=== PATIENT | male | born 1970 | race Caucasian/White ===

== ENCOUNTER 2019-01-27 11:01 | Emergency (ER) | payer MEDICAID ==
[~2019-01-27] VITALS: Ht 167.6 cm; Wt 77.3 kg
[2019-01-27] MEDS ORDERED: CEPH500 PO (11:06)
[2019-01-27] MEDS ORDERED: LISI-662 PO (11:06)
[2019-01-27] MEDS ORDERED: LORazepam 2 MG/ML VIAL IVP ONE (11:45)
[2019-01-27] MEDS ORDERED: SODIUM CHLORIDE 0.9% 1,000 ML IV ONE (11:45)
[2019-01-27 12:47] VITALS: BP 136/78
== END 2019-01-27 12:50 | disposition home or self-care (01) ==
LOC: EMS 11:03
DX: F10.229 Alcohol dependence with intoxication, unspecified (principal); E86.0 Dehydration; I10 Essential (primary) hypertension; F17.210 Nicotine dependence, cigarettes, uncomplicated; Z79.899 Other long term (current) drug therapy; Z95.1 Presence of aortocoronary bypass graft; Z91.013 Allergy to seafood; Y90.6 Blood alcohol level of 120-199 mg/100 ml
CPT/HCPCS: 36415; 96361; 96374; 99283; G0480; J2060; J7030